=== PATIENT | male | born 1975 | race African-American/Black ===

== ENCOUNTER 2022-11-28 01:35 | Emergency (ER) | payer MEDICAID ==
[~2022-11-28] VITALS: Ht 182.9 cm; Wt 83.9 kg
[2022-11-28 01:35] VITALS: BP 124/84; PULSE 89; RESP 17; TEMP 97.7; O2SAT 100
[2022-11-28] MEDS ORDERED: ACETAMINOPHEN EXTRA STRENGTH 500 MG TAB PO ONE (04:50)
[2022-11-28] MEDS ORDERED: ACET-10509 PO (05:26)
[2022-11-28 06:04] VITALS: BP 124/84; PULSE 89; RESP 17; TEMP 97.7; O2SAT 100
[2022-11-28] MEDS ORDERED: IBUP-1842 PO (19:52)
== END 2022-11-28 06:00 | disposition home or self-care (01) ==
LOC: MED 01:35
DX: S93.401A Sprain of unspecified ligament of right ankle, initial encounter (principal); Z79.899 Other long term (current) drug therapy; Y08.89XA Assault by other specified means, initial encounter; Y93.89 Activity, other specified; Y92.89 Other specified places as the place of occurrence of the external cause; Y99.8 Other external cause status
CPT/HCPCS: 73600; 99283

== ENCOUNTER 2022-11-28 19:43 | Emergency (ER) | payer MEDICAID ==
[~2022-11-28] VITALS: Ht 172.7 cm; Wt 77.1 kg
[~2022-11-28 19:43] MED LIST: ACET-10509 PO
[2022-11-28 19:45] VITALS: BP 140/90; PULSE 91; RESP 18; TEMP 97.8; O2SAT 97
[2022-11-28] MEDS ORDERED: IBUP-1842 PO (19:52)
[2022-11-28] MEDS ORDERED: IBUPROFEN 800 MG TAB PO ONE (20:00)
[2022-11-28] MEDS ORDERED: ACETAMINOPHEN 325 MG TAB PO ONE (20:00)
[2022-11-28 20:10] VITALS: BP 140/90; PULSE 91; RESP 18; TEMP 97.8; O2SAT 97
== END 2022-11-28 20:10 | disposition home or self-care (01) ==
LOC: MED 19:43
DX: M25.571 Pain in right ankle and joints of right foot (principal); Z79.899 Other long term (current) drug therapy
CPT/HCPCS: 99283

== ENCOUNTER 2022-11-29 19:42 | Emergency (ER) | payer MEDICAID ==
[~2022-11-29] VITALS: Ht 180.3 cm; Wt 72.6 kg
[~2022-11-29 19:42] MED LIST changes: +IBUP-1842 PO
[2022-11-29 19:47] VITALS: BP 132/86; PULSE 82; RESP 20; TEMP 98.2; O2SAT 99
[2022-11-29 19:55] VITALS: BP 132/86; PULSE 82; RESP 20; TEMP 98.2; O2SAT 99
[2022-11-29] MEDS ORDERED: ACETAMINOPHEN 325 MG TAB PO ONE (20:20)
== END 2022-11-29 21:35 | disposition home or self-care (01) ==
LOC: MED 19:42
DX: M25.571 Pain in right ankle and joints of right foot (principal); Z88.8 Allergy status to other drugs, medicaments and biological substances; Z79.899 Other long term (current) drug therapy
CPT/HCPCS: 99282

== ENCOUNTER 2022-12-01 18:51 | Emergency (ER) | payer MEDICAID ==
[~2022-12-01] VITALS: Ht 172.7 cm; Wt 90.7 kg
[2022-12-01 18:56] VITALS: BP 164/82; PULSE 123; RESP 14; TEMP 98.5; O2SAT 99
[2022-12-01] MEDS ORDERED: IBUPROFEN 800 MG TAB PO ONE (19:05)
[2022-12-01] MEDS ORDERED: IBUP-2218 PO (19:20)
[2022-12-01] MEDS ORDERED: IBUPROFEN 800 MG TAB ONE (20:27)
== END 2022-12-01 20:33 | disposition left against medical advice (07) ==
LOC: MED 18:51
DX: S93.401A Sprain of unspecified ligament of right ankle, initial encounter (principal); G47.00 Insomnia, unspecified; Z79.899 Other long term (current) drug therapy; Y08.89XA Assault by other specified means, initial encounter; Y93.89 Activity, other specified; Y92.89 Other specified places as the place of occurrence of the external cause; Y99.8 Other external cause status
CPT/HCPCS: 99283

== ENCOUNTER 2022-12-07 18:43 | Emergency (ER) | payer MEDICAID ==
[~2022-12-07] VITALS: Ht 175.3 cm; Wt 81.6 kg
[~2022-12-07 18:43] MED LIST changes: +IBUP-2218 PO
[2022-12-07 18:44] VITALS: BP 131/86; PULSE 98; RESP 16; TEMP 98.5; O2SAT 99
== END 2022-12-07 21:10 | disposition left against medical advice (07) ==
LOC: MED 18:43
DX: M79.604 Pain in right leg (principal); Z53.21 Procedure and treatment not carried out due to patient leaving prior to being seen by health care provider
CPT/HCPCS: 99281